=== PATIENT | female | born 1970 | race Caucasian/White ===

== ENCOUNTER 2016-10-08 19:45 | Inpatient (IN) | payer OTHER ==
--- NOTE | 2016-10-08 20:40 | EDPHY ---
H & P Stated Complaint: Abscess right side of chin Time Seen by Provider: 10/08/16 20:16 HPI/ROS: CHIEF COMPLAINT: right-sided facial swelling HISTORY OF PRESENT ILLNESS: 46-year-old female presents emergency department complaining of worsening right-sided facial swelling that started 10 days ago. Patient was seen by her primary care doctor 4 days ago and started on Augmentin for a presumed salivary gland stone. She was told to suck on sour candies intake ibuprofen around the clock. Patient reports she has been doing this, the swelling is not improving and is worsening. She reports she is unable to open her mouth more than a little bit. She denies difficulty swallowing, no sore throat, no fevers, no neck pain. Patient states last month she had a toothache that lasted for a couple weeks on the lower right side, this resolved on its own after a few days. REVIEW OF SYSTEMS: A comprehensive 10 point review of systems is otherwise negative aside from elements mentioned in the history of present illness. Source: Patient Exam Limitations: No limitations - Personal History LMP (Females 10-55): 8-14 Days Ago Current Tetanus/Diphtheria Vaccine: Yes Current Tetanus Diphtheria and Acellular Pertussis (TDAP): Yes - Medical/Surgical History Hx Asthma: No Hx Chronic Respiratory Disease: No Hx Diabetes: No Hx Cardiac Disease: No Hx Renal Disease: No Hx Cirrhosis: No Hx Alcoholism: No Hx HIV/AIDS: No Hx Splenectomy or Spleen Trauma: No Other PMH: - Social History Smoking Status: Never smoked - Physical Exam Exam: Physical Exam Gen: Alert and Oriented, NAD HEENT: PERRL, moist mucous membranes, trismus, unable to open mouth more than 1.5 cm, right-sided submandibular swelling, firmness and tenderness to palpation , no parotid gland swelling or firmness NECK: no meningismus CV: regular rate and regular rhythm PULM: CTAB, no wheezes ABDOMEN: soft, non tender to palpation, BS present BACK: No CVA tenderness NEURO: Neurologically grossly intact EXTREMITIES: normal appearing SKIN: no rash or break in skin on exposed skin PSYCH: answers questions appropriately. Constitutional: Initial Vital Signs Temperature (C) 37.0 C 10/08/16 19:49 Heart Rate 88 10/08/16 19:49 Respiratory Rate 16 10/08/16 19:49 Blood Pressure 178/105 H 10/08/16 19:49 O2 Sat (%) 98 10/08/16 19:49 O2 Delivery Mode Room Air Allergies/Adverse Reactions: Sulfa (Sulfonamide Antibiotics) Allergy (Verified 10/08/16 19:49) Home Medications: Medication Instructions Recorded NK [No Known Home Meds] 10/08/16 Medical Decision Making - Diagnostics Imaging: CT maxillofacial with IV contrast report called by Scot Bartholomew shows a phlegmon and possible abscess deep to the mandible, break in cortex of the medial side of mandible. ED Course/Re-evaluation: IV established, CBC and i-STAT and test obtained. CT face and soft tissue with and without contrast has been ordered. I have consulted Dr. Rendon with maxillofacial surgery who is requesting this. Patient has no evidence of Scooter's angina. She is given 0.5 mg of Dilaudid IV for pain. 1015pm-patient back from CT, awaiting results. CBC shows an elevated white blood cell count at 13,000 with a left shift, chemistry panel shows potassium of 3.0. Patient has a phlegmon that is deep to the mandible, possible apical abscess with a break in the cortex of the medial side of the mandible. I have consulted with Dr. Rendon who would like the patient admitted to the hospitalist. She would like 3 g of Unasyn IV and will see the patient in the morning for a dental extraction. Patient has been admitted to the hospitalist. - Data Points Laboratory Results: Laboratory Results 10/08/16 21:01 10/08/16 10/08/16 21:02 21:01 WBC 13.05 H 10^3/uL (3.80-9.50) RBC 4.15 L 10^6/uL (4.18-5.33) Hgb 12.8 g/dL (12.6-16.3) POC Hgb 12.9 gm/dL (12.3-15.9) Hct 37.6 L % (38.0-47.0) POC Hct 38 % (35.5-47.5) MCV 90.6 fL (81.5-99.8) MCH 30.8 pg (27.9-34.1) MCHC 34.0 g/dL (32.4-36.7) RDW 11.8 % (11.5-15.2) Plt Count 347 10^3/uL (150-400) MPV 9.3 fL (8.7-11.7) Neut % (Auto) 78.4 H % (39.3-74.2) Lymph % (Auto) 13.9 L % (15.0-45.0) [place] % (Auto) 5.7 % (4.5-13.0) Eos % (Auto) 1.1 % (0.6-7.6) Baso % (Auto) 0.4 % (0.3-1.7) Nucleat RBC Rel Count 0.0 % (0.0-0.2) Absolute Neuts (auto) 10.21 H 10^3/uL (1.70-6.50) Absolute Lymphs (auto) 1.82 10^3/uL (1.00-3.00) Absolute Monos (auto) 0.75 10^3/uL (0.30-0.80) Absolute Eos (auto) 0.15 10^3/uL (0.03-0.40) Absolute Basos (auto) 0.05 10^3/uL (0.02-0.10) Absolute Nucleated RBC 0.00 10^3/uL (0-0.01) Immature Gran % 0.5 % (0.0-1.1) Immature Gran # 0.07 10^3/uL (0.00-0.10) POC Sodium 140 mEq/L (134-144) POC Potassium 3.0 L mEq/L (3.3-5.0) POC Chloride 101 mEq/L (96-108) POC BUN 8 mg/dL (7-23) POC Creatinine 0.6 mg/dL (0.6-1.2) POC Glucose 96 mg/dL (70-100) Beta HCG, Qual NEGATIVE Medications Given: Discontinued Medications Hydromorphone HCl (Dilaudid) 0.5 mg IVP EDNOW ONE Stop: 10/08/16 22:34 Last Admin: 10/08/16 22:39 Dose: 0.5 mg Sodium Chloride (Ns) 500 mls @ 0 mls/hr IV ONCE ONE PRN Reason: As Directed Stop: 10/08/16 22:34 Last Admin: 10/08/16 22:39 Dose: 500 mls Ondansetron HCl (Zofran) 4 mg IVP EDNOW ONE Stop: 10/08/16 22:34 Last Admin: 10/08/16 22:39 Dose: 4 mg Point of Care Test Results: 10/08/16 21:02 POC Sodium 140 POC Potassium 3.0 L POC Chloride 101 POC BUN 8 POC Creatinine 0.6 POC Glucose 96 Departure - Departure Disposition: [facility] Inpatient Acute Clinical Impression: Dental abscess Condition: Good
[2016-10-08 21:14] LABS: % IMMATURE GRANULYOCYTES 0.5 % (0.0-1.1); ABSOLUTE IMMATURE GRANULOCYTES 0.07 10^3/uL (0.00-0.10); ADD DIFF? NO; ADD MORPH? NO; ADD SCAN? NO; ATYPICAL LYMPHOCYTE FLAG 0 (0-99); FRAGMENT RBC FLAG 0 (0-99); HEMATOCRIT 37.6 % (38.0-47.0); HEMOGLOBIN 12.8 g/dL (12.6-16.3); LEFT SHIFT FLG 0 (0-99); LIPEMIA HEMOLYSIS FLAG 90 (0-99); MEAN CELL HEMOGLOBIN 30.8 pg (27.9-34.1); MEAN CELL VOLUME 90.6 fL (81.5-99.8); MEAN PLATELET VOLUME 9.3 fL (8.7-11.7); PLATELET CLUMPS FLAG 0 (0-99); PLATELET COUNT 347 10^3/uL (150-400); RED BLOOD CELL COUNT 4.15 10^6/uL (4.18-5.33); RED CELL DISTRIBUTION WIDTH 11.8 % (11.5-15.2)
[2016-10-08] MEDS ORDERED: IOPAMIDOL (ISOVUE-300) 100 ML BTL IV ONE (22:09)
[2016-10-08] MEDS ORDERED: NS 500 ML IV ONE (22:33)
[2016-10-08] MEDS ORDERED: ONDANSETRON 4 MG/2 ML VIAL ONE (22:33)
[2016-10-08] MEDS ORDERED: HYDROmorphONE/DILAUDID 1 MG/ML SYR IVP ONE (22:33)
[2016-10-08] MEDS ORDERED: ONDANSETRON 4 MG/2 ML VIAL IVP ONE (22:33)
[2016-10-08] MEDS ORDERED: HYDROmorphONE/DILAUDID 1 MG/ML SYR ONE (22:33)
[2016-10-08] MEDS ORDERED: ONDANSETRON 4 MG/2 ML VIAL IVP PRN (23:03)
[2016-10-08] MEDS ORDERED: HYDROmorphONE/DILAUDID 1 MG/ML SYR IVP PRN (23:03)
[2016-10-08] MEDS ORDERED: NS 1,000 ML IV SCH (23:15)
--- NOTE | 2016-10-08 23:20 | PDGENHP ---
History and Physical - Chief Complaint dental pain - History of Present Illness Patient is a 46/F with no known medical history who presents to the ED with complaint of R jaw pain. Patient states symptoms started on 09/30 with slight swelling and discomfort in her lower/lateral R jaw. These symptoms progressed, the pain worsened, so she went to her PMD's office on 10/04. She was told it could be a salivary gland stone or infection, so she was started on Augmentin 2g BID and instructed to go to the ED if either the pain or swelling worsened. Patient has been compliant with the Augmentin since 10/04, but her jaw symptoms continued to worsen. Today, the pain had intensified severely, has difficulty opening her mouth due to pain, symptoms not responsive to Ibuprofen, so she came to the ED for further evaluation. She denies any associated fever, chills, headache, hearing changes, cough, shortness of breath, n/v. On arrival to the ED, patient was afebrile, but hypertensive and in significant pain. Labs revealed leukocytosis. CT neck was obtained and revealed possible submandibular abscess. OMFS was consulted and recommended admission for IV antibiotics and surgical debridement, to be performed in the AM. She was initiated on Unasyn and admitted to the hospitalist service for further management. 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 Review of Systems ROS: 10pt was reviewed & negative except for what was stated in HPI & below Physical Exam Temp Pulse Resp BP Pulse Ox 37.0 C 84 16 154/101 H 95 10/08/16 19:56 10/08/16 22:39 10/08/16 22:39 10/08/16 22:39 10/08/16 22:39 Constitutional: no apparent distress, appears nourished, not in pain Eyes: PERRL, anicteric sclera, EOMI Ears, Nose, Mouth, Throat: other (firm, tender soft tissue swelling of R submandibular area with associated cervical LAD; no obvious sign of skin breakdown) Cardiovascular: regular rate and rhythym, no murmur, rub, or gallop, pulses symmetric bilaterally, No JVD, No edema Peripheral Pulses: 2+: dorsalis-pedis (R), dorsalis-pedis (L) Respiratory: no respiratory distress, no rales or rhonchi, clear to auscultation Gastrointestinal: normoactive bowel sounds, soft, non-tender abdomen, no palpable masses, No guarding, No rebound Genitourinary: no bladder fullness, no bladder tenderness Skin: warm, normal color Musculoskeletal: full muscle strength, no muscle tenderness, normal joint ROM, no joint effusions Neurologic: AAOx3, sensation intact bilaterally, CN II-XII Intact, No weakness, No numbness Psychiatric: interacting appropriately, not anxious, not encephalopathic, thought process linear Lab Data & Imaging Review 10/08/16 21:01 WBC 13.05 10^3/uL (3.80-9.50) H 10/08/16 21: RBC 4.15 10^6/uL (4.18-5.33) L 10/08/16 21:01 Hgb 12.8 g/dL (12.6-16.3) 10/08/16 21:01 POC Hgb 12.9 gm/dL (12.3-15.9) 10/08/16 21:02 Hct 37.6 % (38.0-47.0) L 10/08/16 21:01 POC Hct 38 % (35.5-47.5) 10/08/16 21:02 MCV 90.6 fL (81.5-99.8) 10/08/16 21: MCH 30.8 pg (27.9-34.1) 10/08/16 21: MCHC 34.0 g/dL (32.4-36.7) 10/08/16 21:01 RDW 11.8 % (11.5-15.2) 10/08/16 21: Plt Count 347 10^3/uL (150-400) 10/08/16 21:01 MPV 9.3 fL (8.7-11.7) 10/08/16 21:01 Neut % (Auto) 78.4 % (39.3-74.2) H 10/08/16 21:01 Lymph % (Auto) 13.9 % (15.0-45.0) L 10/08/16 21:01 [place] % (Auto) 5.7 % (4.5-13.0) 10/08/16 21:01 Eos % (Auto) 1.1 % (0.6-7.6) 10/08/16 21:01 Baso % (Auto) 0.4 % (0.3-1.7) 10/08/16 21:01 Nucleat RBC Rel Count 0.0 % (0.0-0.2) 10/08/16 21:01 Absolute Neuts (auto) 10.21 10^3/uL (1.70-6.50) H 10/08/16 21:01 Absolute Lymphs (auto) 1.82 10^3/uL (1.00-3.00) 10/08/16 21:01 Absolute Monos (auto) 0.75 10^3/uL (0.30-0.80) 10/08/16 21:01 Absolute Eos (auto) 0.15 10^3/uL (0.03-0.40) 10/08/16 21:01 Absolute Basos (auto) 0.05 10^3/uL (0.02-0.10) 10/08/16 21:01 Absolute Nucleated RBC 0.00 10^3/uL (0-0.01) 10/08/16 21:01 Immature Gran % 0.5 % (0.0-1.1) 10/08/16 21:01 Immature Gran # 0.07 10^3/uL (0.00-0.10) 10/08/16 21:01 POC Sodium 140 mEq/L (134-144) 10/08/16 21:02 POC Potassium 3.0 mEq/L (3.3-5.0) L 10/08/16 21:02 POC Chloride 101 mEq/L (96-108) 10/08/16 21:02 POC BUN 8 mg/dL (7-23) 10/08/16 21:02 POC Creatinine 0.6 mg/dL (0.6-1.2) 10/08/16 21:02 POC Glucose 96 mg/dL (70-100) 10/08/16 21:02 Beta HCG, Qual NEGATIVE 10/08/16 21:01 Visualized and Interpreted imaging results: Yes Interpretation: CT neck: R submandibular abscess Assessment & Plan Assessment: Patient is a 46/F with no significant PMH who presents to the ED with complaint of R jaw pain, swelling, which has continued to worsen despite outpatient antibiotic treatment. CT reveals submandibular infection, with likely abscess, which will require surgical debridement. Plan: # R submandibular infection Leukocytosis, but patient afebrile, hemodynamically stable. Will cont Unasyn, f/ u OMFS post-op recs. Pain control with tylenol/oxycodone/dilaudid prn. Currently maintaining airway, respiratory status stable, no indication for steroids at this time, but will cont to monitor. # elevated BP Likely related to pain and acute illness. Will monitor for now and control symptoms. # dispo: admit under observation status pending results of surgical debridement tomorrow. # full code
--- NOTE | 2016-10-08 23:34 | PDCONSULT ---
Pad Cutter Note: ORAL & MAXILLOFACIAL SURGERY CONSULTATION HPI: The patient is a 46 year old female who reports right lower jaw and neck swelling that began 2/2. Six days later she presented to a primary care physician who prescribed her augmentin for a right salivary gland inflammation. She has been taking the prescribed dose as recommended with no improvement in her symptoms. She came to the ED today with worsening pain 6/10 that is now unresponsive to ibuprofen, decreased mouth opening, pain in her throat, and vocal changes. She denies any history of salivary gland inflammation or obstruction, but does report that she had a toothache with the last tooth on the bottom right 1.5 months ago. She did not seek treatment because the symptoms gradually subsided over a period of 3 weeks. PAST MEDICAL HISTORY: seasonal allergies MEDICATIONS: benadryl prn, augmentin, ibuprofen prn. ALLERGIES: sulfa medications SURGICAL HISTORY: 3 c-sections (1990, 1997, 2001), abdominoplasty (1994). does endorse PONV. SOCIAL HISTORY: social ETOH (last drink one month prior). denies tobacco or illicit drug use. Lives in [place] with her two daughters. FAMILY HISTORY: denies. ROS: She states that her blood pressure has been elevated this last week, but otherwise only endorses symptoms reported in the HPI. PHYSICAL EXAM: BMI 27. Blood pressure 178/105, heart rate 88, respiratory rate 16, O2 saturation 98% on room air, temperature 37.0. 5 X 6 cm induration and edema of the right submandibular region with obliteration of the right mandibular border, tenderness to palpation with mild erythema and warmth, CN II- XII grossly intact except R V3 hypoesthesia involving the chin and lip vermilion , trachea is midline, NENO 10 mm with discomfort, dentition with root tips of #4 , 6, 20, missing #19, FOM with mild edema but without elevation, able to protrude tongue, unable to visualize oropharynx or uvula, no tenderness to right mandibular vestibule or right mandibular dentition, no percussion sensitivity, no mobility. LABS: leukocytosis 13 IMAGING: appears odontogenic, with source likely #31 with associated cortical perforation in proximal mandibular lingual cortex ASSESSMENT/PLAN: right submandibular odontogenic infection associated with severe trismus. will require I&D, cultures, placement of intraoral/extraoral drains, extraction #31, possible open tracheostomy under awake nasal intubation tomorrow morning. Will consent in AM, possible that pt may need to remain intubated if oropharyngeal airway edema present after exam under GA. -initiate unasyn 3g q6h, would like pt to receive several doses prior to surgical intervention -periogard mouthrinse bid -ok for full liquids tonight, NPO at MN with MIVF -analgesics prn, roxicodone/tylenol/ibuprofen prn, morphine for breakthrough only -OMFS will follow
[2016-10-08] MEDS ORDERED: PROTOCOL MAGNESIUM 1 DOSE IV PRN (23:45)
[2016-10-08] MEDS ORDERED: PROTOCOL POTASSIUM 1 DOSE MISC PRN (23:45)
[2016-10-08] MEDS: ONDANSETRON DISINTEGRATING 4 MG TAB PO PRN (23:51)
[2016-10-08] MEDS: oxyCODONE IR 5 MG TAB PO PRN (23:53)
[2016-10-09] MEDS: LORazepam 1 MG TAB PO PRN ×2 (01:45→22:20)
[2016-10-09] MEDS ORDERED: POTASSIUM CL 10 MEQ TAB PO ONE ×4 (01:45→23:47)
[2016-10-09] MEDS: oxyCODONE IR 5 MG TAB PO PRN ×2 (02:00→14:44)
[2016-10-09] MEDS: POTASSIUM Cl (KCl) 100 ML IV SCH ×4 (02:16→06:22)
--- NOTE | 2016-10-09 02:29 | CPEKG ---
Heart Rate: 76 RR Interval: 789 P-R Interval: 180 QRSD Interval: 90 QT Interval: 388 QTC Interval: 437 P [place]: 58 QRS [place]: 88 T Wave [place]: -8 EKG Severity - BORDERLINE ECG - EKG Impression: SINUS RHYTHM EKG Impression: BORDERLINE T ABNORMALITIES, INFERIOR LEADS Electronically Signed By: Darien Escobar 09-Oct-2016 10:36:59
[2016-10-09] MEDS ORDERED: HYDROmorphONE/DILAUDID 1 MG/ML SYR IVP ONE (02:50)
[2016-10-09] MEDS: DEXAMETHASONE 4 MG/ML VIAL IVP SCH ×4 (05:18→23:27)
[2016-10-09] MEDS: KETOROLAC 30 MG/1 ML SDV IVP PRN ×3 (05:29→23:28)
[2016-10-09 05:58] LABS: % IMMATURE GRANULYOCYTES 0.6 % (0.0-1.1); ABSOLUTE IMMATURE GRANULOCYTES 0.07 10^3/uL (0.00-0.10); ADD DIFF? NO; ADD MORPH? NO; ADD SCAN? NO; ATYPICAL LYMPHOCYTE FLAG 0 (0-99); FRAGMENT RBC FLAG 0 (0-99); HEMATOCRIT 34.3 % (38.0-47.0); HEMOGLOBIN 11.7 g/dL (12.6-16.3); LEFT SHIFT FLG 10 (0-99); LIPEMIA HEMOLYSIS FLAG 90 (0-99); MEAN CELL HEMOGLOBIN 30.7 pg (27.9-34.1); MEAN CELL HEMOGLOBIN CONCENTR. 34.1 g/dL (32.4-36.7); MEAN PLATELET VOLUME 9.3 fL (8.7-11.7); PLATELET CLUMPS FLAG 20 (0-99); PLATELET COUNT 312 10^3/uL (150-400); RED BLOOD CELL COUNT 3.81 10^6/uL (4.18-5.33); RED CELL DISTRIBUTION WIDTH 11.9 % (11.5-15.2)
[2016-10-09] MEDS ORDERED: AMPICILLIN/SULBACTAM 3 GM in NS 100 ML IV SCH ×2 (06:00)
[2016-10-09 06:03] LABS: INR 1.06 (0.83-1.16); PROTIME(PATIENT) 13.7 SEC (12.0-15.0)
[2016-10-09 06:04] LABS: APTT 35.9 SEC (23.0-38.0)
[2016-10-09 06:40] LABS: ANION GAP 10 mEq/L (8-16); CALCIUM 8.3 mg/dL (8.5-10.4); CARBON DIOXIDE 23 mEq/l (22-31); CHLORIDE 106 mEq/L (97-110); CREATININE 0.4 mg/dL (0.6-1.0); GLOMERULAR FILTRATION RATE > 60; GLUCOSE 101 mg/dL (70-100); MAGNESIUM 1.7 mg/dL (1.6-2.3); POTASSIUM 3.8 mEq/L (3.5-5.2); SODIUM 139 mEq/L (134-144)
--- NOTE | 2016-10-09 08:33 | HOSPPROG ---
Hospitalist Progress Note Assessment/Plan: Patient is a 46/F with no known medical history who presents to the ED with complaint of R jaw pain. Symptoms started on 09/30 with slight swelling and discomfort in her lower/lateral R jaw. These symptoms progressed. She was her PCP and was started on Augmentin out of concern of a salivary gland stone or infection. Today is my first encounter w the patient/ chart reviewed. # R odontogenic submandibular infection w severe trismus * unasyn * to go to OR for I & D * CT of the neck shows possible mandibular abscess # Leukocytosis * due to the above # elevated BP * due to pain # dispo: she will require another midnight stay for IV abx Subjective: Amy is sleepy/ says pain is ongoing to right jaw area. Objective: Vital Signs Temp Pulse Resp BP Pulse Ox 36.7 C 71 10 L 156/87 H 99 10/09/16 03:25 10/09/16 03:25 10/09/16 03:25 10/09/16 03:25 10/09/16 03:25 Laboratory Results 10/09/16 05:42 10/09/16 05:42 10/08/16 10/09/16 10/10/16 05:59 05:59 05:59 Intake Total 2233 Output Total 300 Balance 1933 PT 13.7 SEC (12.0-15.0) 10/09/16 05:42 INR 1.06 (0.83-1.16) 10/09/16 05:42 - Physical Exam Constitutional: uncomfortable, No not in pain Eyes: PERRL Ears, Nose, Mouth, Throat: hearing normal Cardiovascular: regular rate and rhythym Respiratory: no respiratory distress Gastrointestinal: normoactive bowel sounds Skin: other (large [place] area of swelling in right jaw area) Musculoskeletal: no muscle tenderness Neurologic: AAOx3 Psychiatric: interacting appropriately ICD10 Worksheet Patient Problems: Problems Problem Status Diagnosed Dental abscess Acute
[2016-10-09] MEDS ORDERED: LIDO/EPI 2%** Not for Epidural 20 ML MDV ONE (08:57)
--- NOTE | 2016-10-09 08:57 | CT ---
CT of the Face With Contrast History: Right-sided mandibular swelling and facial swelling. Technique: Volumetric axial CT images of the face are obtained after intravenous administration of 80 mL Isovue 300. Reconstructed images are obtained in the sagittal and coronal planes. Dose reduction techniques are utilized. Findings: There is a focal apical abscess surrounding a posterior right mandibular molar. This findin g is best visualized on axial bone images 97 and 98 of series 4. There is associated dehiscence of th e medial cortex of the mandible, and there is adjacent inflammatory changes and possible abscess vers us inflammatory phlegmon medial to the mandibular body, measuring 2.4 x 1.1 cm in size and dissecting posteriorly toward the angle. Marked adjacent inflammatory changes within the submandibular fat, inc luding reactive lymphadenopathy within the submandibular space. Impression: Periapical abscess involving the posterior right mandibular molar with cortical dehiscenc e medially and inflammatory phlegmon versus abscess medial to the mandible with secondary marked soft tissue inflammatory changes in the submandibular space and submandibular reactive lymphadenopathy. Results called to Teena López PA-C at 10:45 p.mLuna
[2016-10-09] MEDS ORDERED: BACITRACIN 50,000 UNITS/10 ML SYR IRR ONE (08:58)
[2016-10-09] MEDS ORDERED: POLYMYXIN B SULFATE 500,000 UNIT/10 ML SYR IRR ONE (08:58)
[2016-10-09] MEDS ORDERED: methylPREDNISolone SOD SUCC 125 MG/2 ML VIAL ONE (08:59)
[2016-10-09] MEDS ORDERED: BUPIVACAINE/EPI 0.5% 30 ML SDV ONE (09:02)
[2016-10-09] MEDS ORDERED: fentaNYL 100 MCG/2 ML INJ ONE ×2 (09:59→11:11)
[2016-10-09] MEDS ORDERED: PROPOFOL/EMULSION 500 MG/50 ML BOTTLE IV ONE (10:00)
[2016-10-09] MEDS ORDERED: MIDAZOLAM 2 MG/2 ML VIAL ONE (10:01)
[2016-10-09] MEDS ORDERED: DEXAMETHASONE 4 MG/ML VIAL ONE ×2 (10:25)
[2016-10-09] MEDS ORDERED: SUGAMMADEX SODIUM 200 MG/2 ML VIAL IVP ONE (10:53)
--- NOTE | 2016-10-09 11:47 | POSTOPPROG ---
Post Op Note Date of Operation: 10/09/16 Surgeon: Vero Bansal Strapper: n/a Anesthesiologist: Klaus Vicente Anesthesia: GET(General Endotracheal), Other (Specify) (nasoendotracheal) Pre-op Diagnosis: right submandibular space abscess Post-op Diagnosis: same Indication: trismus Procedure: extraction #31, I&D of right submandibular space abscess, drain placement Findings: purulent drainage Inf/Abcess present in the surg proc area at time of surgery?: Yes Depth: Deep Incisional (Fascial) EBL: Minimal Drains: Paul (one paul exiting right cervical region)
[2016-10-09] MEDS ORDERED: POTASSIUM CL 20 MEQ/15 ML UDCUP PO ONE (13:00)
--- NOTE | 2016-10-09 13:36 | GOP ---
[f rep st] ORAL & MAXILLOFACIAL SURGERY OPERATIVE REPORT DATE OF OPERATION: 10/09/2016 SURGEON: Vero Bansal DDS, MD ANESTHESIA: GA. ANESTHESIOLOGIST: Klaus Vicente MD. PREOPERATIVE DIAGNOSIS: Right submandibular space abscess, fractured confucianism #31. POSTOPERATIVE DIAGNOSIS: Right submandibular space abscess, fractured confucianism #31. PROCEDURE PERFORMED: Incision and drainage of right submandibular space abscess with extraction of tooth #31, placement of 1 extraoral drain. FINDINGS: purulent drainage SPECIMENS: None. CULTURE: aerobic and anaerobic x 2 DRAIN: paul x 1, right neck ESTIMATED BLOOD LOSS: 10 cc. INDICATIONS: The patient is a 46-year-old female who presented to the ED last night with complaints of worsening pain, right facial swelling, and difficulty opening her mouth that initially began 2/2 and progressed despite antibiotics. On evaluation, it was found that she had edema of the right submandibular space region with a NENO of 10 mm. Imaging demonstrated a fluid collection of the right submandibular space and a cortical break associated with tooth #31. Risks , benefits, and complications were explained to the patient, and she consented to the procedure. She was admitted overnight for observation. DESCRIPTION OF PROCEDURE: The patient was correctly identified in the preoperative holding area and taken to OR 4, and transferred to the OR bed in a supine position. She was prepped for an awake nasoendotracheal intubation, and it was performed without complication. She was then prepped and draped in the usual sterile fashion and a time-out was performed, where all members of the team were in agreement of the procedure. The right inferior border of the mandible and a 3 cm incision in a pre-existing neck crease > 2 cm below the border was marked. 2 cc of 0.5% Marcaine with 1:200,000 epinephrine was locally infiltrated in the subcutaneous tissues. Under negative pressure a syringe was guided from the marked incision and 2 cc of purulent drainage was obtained from the right submandibular space and sent for culture. A bite block was placed and 5 cc of 0.5% Marcaine with 1:200,000 epinephrine was given as a right inferior alveolar and lingual nerve block and a right buccal nerve infiltration. Tooth #31 was elevated and delivered without complication. Blunt dissection through the cervical incision was performed to the extraction site on the lingual cortex, where 7 cc of purulent drainage was expressed through the extraction site. A quarter-inch [place] was placed through the cervical region and connected to the oral cavity. 200 cc of normal saline irrigation was performed, with communication from the oral cavity to the cervical incision. The [place] was secured to the skin with a 2-0 Prolene suture. The lateral communications media professor space was explored and no drainage was obtained. A gauze pressure dressing with umbilical tape was placed intraorally, and gauze with an Andrea wrap was placed for the cervical incision. The patient was awakened and extubated without complication and transferred to PACU in the care of her surgery team. /[id number]/MODL MTDD
[2016-10-09] MEDS: AMPICILLIN/SULBACTAM 3 GM in NS 100 ML IV SCH ×3 (14:39→20:35)
[2016-10-09] MEDS ORDERED: MAGNESIUM SULF 1 GM/DEXTROSE 100 ML IV ONE (15:50)
[2016-10-09] MEDS ORDERED: NS BOLUS 500 ML (Wide open) IV ONE (20:00)
[2016-10-09 21:18] LABS: POTASSIUM 3.6 mEq/L (3.5-5.2)
[2016-10-09] MEDS: ONDANSETRON DISINTEGRATING 4 MG TAB PO PRN (22:19)
[2016-10-09] MEDS: ACETAMINOPHEN 325 MG TAB PO PRN (22:21)
[2016-10-09] MEDS ORDERED: POTASSIUM Cl (KCl) 100 ML IV SCH (23:30)
[2016-10-10] MEDS: AMPICILLIN/SULBACTAM 3 GM in NS 100 ML IV SCH ×4 (01:06→17:22)
[2016-10-10] MEDS: KETOROLAC 30 MG/1 ML SDV IVP PRN ×3 (05:17→18:30)
[2016-10-10] MEDS: DEXAMETHASONE 4 MG/ML VIAL IVP SCH (05:17)
[2016-10-10 05:57] LABS: % IMMATURE GRANULYOCYTES 0.8 % (0.0-1.1); ABSOLUTE IMMATURE GRANULOCYTES 0.14 10^3/uL (0.00-0.10); ADD DIFF? NO; ADD MORPH? NO; ADD SCAN? NO; ATYPICAL LYMPHOCYTE FLAG 0 (0-99); FRAGMENT RBC FLAG 0 (0-99); HEMATOCRIT 33.9 % (38.0-47.0); HEMOGLOBIN 11.7 g/dL (12.6-16.3); LEFT SHIFT FLG 10 (0-99); LIPEMIA HEMOLYSIS FLAG 90 (0-99); MEAN CELL HEMOGLOBIN 30.7 pg (27.9-34.1); MEAN CELL HEMOGLOBIN CONCENTR. 34.5 g/dL (32.4-36.7); MEAN PLATELET VOLUME 9.7 fL (8.7-11.7); PLATELET CLUMPS FLAG 10 (0-99); PLATELET COUNT 388 10^3/uL (150-400); RED BLOOD CELL COUNT 3.81 10^6/uL (4.18-5.33); RED CELL DISTRIBUTION WIDTH 11.5 % (11.5-15.2)
[2016-10-10 06:18] LABS: MAGNESIUM 2.1 mg/dL (1.6-2.3); POTASSIUM 3.9 mEq/L (3.5-5.2)
[2016-10-10] MEDS ORDERED: POTASSIUM CL 10 MEQ TAB PO ONE ×2 (08:55→20:28)
--- NOTE | 2016-10-10 09:08 | SOAPPROG ---
SOAP Progress Note Assessment/Plan: Assessment: 46 y F now POD 1 of extraction #31, I&D of right submandibular space infection, paul x 1, currently stable. Dressing changed this am, moderate purulent drainage, will continue to monitor for output prior to drain removal. discussed c pt this am, she should ambulate, shower, eat, and stay hydrated. Plan: -continue unasyn, pending final cultures. likely can transition to oral abx tomorrow -transition to oral analgesics to plan for d/c, likely monday -diet, can advance as tolerated but to stay on soft today for comfort -peridex bid -ok to d/c decadron -CBC tomorrow -will follow 10/10/16 09:03 Subjective: no overnight events Objective: Vital Signs Temp Pulse Resp BP Pulse Ox 36.9 C 88 18 130/84 H 95 10/10/16 08:14 10/10/16 08:14 10/10/16 08:14 10/10/16 08:14 10/10/16 08:14 Microbiology 10/09/16 10:35 Gram Stain - Final Mouth - Eswab 10/09/16 10:35 Gram Stain - Final Mouth - Eswab Laboratory Results 10/10/16 05:25 10/10/16 05:25 10/09/16 10/10/16 10/11/16 05:59 05:59 05:59 Intake Total 2233 2040 Output Total 300 1260 Balance 1933 780 PT 13.7 SEC (12.0-15.0) 10/09/16 05:42 INR 1.06 (0.83-1.16) 10/09/16 05:42 dressing removed with improvement in right submandibular edema, induration present as expected, drain secured with suture CN II-XII grossly intact except for R V3 hypoesthesia limited to mentum NENO 15 mm, FOM soft, extraction site hemostatic, drain intact intraorally ICD10 Worksheet Patient Problems: Problems Problem Status Diagnosed Dental abscess Acute
[2016-10-10] MEDS: CHLORHEXIDINE GLUCONATE 15 ML UDL PO SCH ×2 (09:14→20:41)
--- NOTE | 2016-10-10 10:19 | GCON ---
[f rep st] CONSULTATION INPATIENT INFECTIOUS DISEASE CONSULTATION REFERRING PHYSICIAN: Valeria Martínez NP REASON FOR CONSULTATION: Right-sided submandibular abscess with odontologic infection. HISTORY OF PRESENT ILLNESS: Patient is a 46-year-old female with no significant past medical history , who presented to the emergency room on 10/08/2016 complaining of swollen face on the right side, as well swelling in the right submandibular area. She notes that she had a toothache on the right side approximately a month ago, but it went away on its own. She started noticing facial swelling 10 day s prior to her presentation. She saw her primary care doctor 4 days prior to presentation who starte d her on 2000 mg of Augmentin b.i.d. The presumption at that point was that she may have had a saliv cherry gland obstructing stone. The patient had significant trismus. She denies any fevers, chills, or night sweats. She underwent surgery yesterday with Dr. Bansal. Findings included 7 cc of purulent drai nage through the right neck site. [place] drain was placed draining externally out the right side of the neck, as well as an internal Brian to the oral cavity. There was no drainage seen in the late ral health care liaison space. She has been managed on intravenous Unasyn. Currently, she is resting comfort ably in her hospital bed. She denies any new complaint. She states that the facial and neck swellin g has decreased significantly in the last 24 hours. Denies any fevers or chills. PAST MEDICAL HISTORY: Essentially negative. PAST SURGICAL HISTORY: As above. . ANTIBIOTICS: Unasyn. ALLERGIES: Patient is allergic to sulfa drugs. SOCIAL HISTORY: No significant tobacco, alcohol or drug use noted. FAMILY HISTORY: Reviewed and noncontributory. REVIEW OF SYSTEMS: Other than detailed above in the History of Present Illness, a comprehensive 10-s ystem review is negative. PHYSICAL EXAMINATION: VITAL SIGNS: Temperature maximum is 37.0, temperature current is 36.9, heart rate is 88, respiratory rate is 18, blood pressure is 130/84. GENERAL: The patient is a well-formed , well-nourished female, in no acute distress. She is not toxic in appearance. She is alert oriente d x3. She is in a pleasant demeanor. HEENT: Normocephalic. Atraumatic. No scleral icterus. The patient has a Brian drain visible in the right mandibular area intraorally. No significant purulen ce noted. No drainage from the nares. Eyes lids and conjunctivae within normal limits. Pupils are equal and round bilaterally. NECK: Supple. Full on the right versus left side. Brian drain emerg ing submandibularly on the right side. A small amount of seropurulent on the gauze pad. No fluctuan ce noted. LUNGS: Clear to auscultation bilaterally with good effort. HEART: Regular rate and rhyt hm. No murmur, rub, or gallop noted. SKIN: Warm and dry to the touch. No rash or lesion noted. M USCULOSKELETAL: No muscle tenderness noted. No joint enlargement, effusion or arthritis seen. NEUR O: Cranial nerves 2-12 seem to be intact. Peripheral sensation seems intact in all extremities. LABORATORY DATA: The patient's CBC dated 10/10/2016 shows a white blood cell count of 16.8, hemoglob in 11.7, hematocrit of 33.9, platelet count of 388, differential is left-shifted with 89% segmented n eutrophils. Serum chemistry on 10/09/2016 was within normal limits. Creatinine 0.4. MICROBIOLOGIC DATA: The patient had operative cultures dated to 10/09/2016, which show gram-positive cocci and gram-positive rods on Gram stain. Culture is pending. ASSESSMENT: Right-sided odontologic infection leading to submandibular swelling and abscess. Now st atus post incision and drainage. Unasyn is a reasonable cover of oral pete that most likely be the etiology of this. I am concerned due to the time frame of symptoms that mandibular bone involvement may be in the picture here. I will review the CT scan of her face with Radiology today and based upo n that discussion, we will determine whether oral antibiotics can be pursued or whether she will need a course of IV antibiotics to treat. PLAN: 1. Continue IV Unasyn for now. 2. Follow up with Radiology review. 3. We will follow her clinical course and culture data. /[id number]/MODL
--- NOTE | 2016-10-10 11:48 | HOSPPROG ---
Hospitalist Progress Note Assessment/Plan: Patient is a 46/F with no known medical history who presents to the ED with complaint of R jaw pain. Symptoms started on 09/30 with slight swelling and discomfort in her lower/lateral R jaw. These symptoms progressed. She was her PCP and was started on Augmentin out of concern of a salivary gland stone or infection. Reviewed her care with ID and oral surgeon today. # R odontogenic submandibular infection w severe trismus * unasyn * s/p I & D * CT of the neck shows possible mandibular abscess * paul drain in/ patient is feeling better # Leukocytosis * due to the above and was on decadron # elevated BP * due to pain # dispo: likely will need 1-2 more days in hospital for abx Subjective: Amy is feeling better overall/ less swelling/ pain is overall well managed. Objective: Vital Signs Temp Pulse Resp BP Pulse Ox 36.9 C 82 18 146/105 H 96 10/10/16 08:14 10/10/16 11:15 10/10/16 11:15 10/10/16 11:15 10/10/16 11:15 Laboratory Results 10/10/16 05:25 10/10/16 05:25 10/09/16 10/10/16 10/11/16 05:59 05:59 05:59 Intake Total 1140 Output Total 1250 Balance -110 PT 13.7 SEC (12.0-15.0) 10/09/16 05:42 INR 1.06 (0.83-1.16) 10/09/16 05:42 - Physical Exam Constitutional: appears nourished, not in pain Eyes: PERRL Ears, Nose, Mouth, Throat: hearing normal Cardiovascular: regular rate and rhythym Respiratory: no respiratory distress Gastrointestinal: normoactive bowel sounds Skin: warm, normal color, other (jaw/right side with swelling/ but less since yesterday) Musculoskeletal: full muscle strength, no muscle tenderness Neurologic: AAOx3 Psychiatric: interacting appropriately, not anxious ICD10 Worksheet Patient Problems: Problems Problem Status Diagnosed Dental abscess Acute
[2016-10-10 19:16] LABS: POTASSIUM 3.9 mEq/L (3.5-5.2)
[2016-10-10] MEDS: OXYCODONE/APAP 5/325 TAB PO PRN (20:40)
[2016-10-11] MEDS: KETOROLAC 30 MG/1 ML SDV IVP PRN ×3 (00:32→20:54)
[2016-10-11] MEDS: AMPICILLIN/SULBACTAM 3 GM in NS 100 ML IV SCH ×2 (00:32→09:01)
[2016-10-11] MEDS ORDERED: KETOROLAC 30 MG/1 ML SDV ONE (06:02)
[2016-10-11 06:23] LABS: MAGNESIUM 1.9 mg/dL (1.6-2.3); POTASSIUM 3.9 mEq/L (3.5-5.2)
[2016-10-11] MEDS ORDERED: POTASSIUM CL 10 MEQ TAB PO ONE ×2 (07:32→19:42)
--- NOTE | 2016-10-11 09:13 | PCMIDPN ---
Assessment/Plan: Assessment/Plan: 1. 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 i spoke to micro to do sensitivities. - CT's reviewed by Dr. Barroso with radiology yesterday--concerns for osteomyelitis of the mandible - Given that, will change atbx to invanz for easier OP regimen, plan for at least 6 weeks of atbx with OP f/u in office, -Will order for PIcc line today -Care coordinated with hospitalist team. - Still with purulent drainage from paul drain. -will work on interagency form. [employer]. Subjective: Aebrile. Feeling a little better today. Slight decrease in swelling. able to open up mouth a litte bit more. mild cough when taking deep breaths. Denies abd pain. Some loose stools yesterday x 2. taking in solids. Objective: Vital Signs Temp Pulse Resp BP Pulse Ox 36.7 C 69 16 126/84 H 94 10/11/16 08:00 10/11/16 08:00 10/11/16 08:00 10/11/16 08:00 10/11/16 08:00 Laboratory Results 10/10/16 05:25 10/11/16 05:12 10/10/16 10/11/16 10/12/16 05:59 05:59 05:59 Intake Total 1140 Output Total 1250 150 Balance -110 -150 - Physical Exam General Appearance: alert, no apparent distress EENT: other (induration at right neck. some swelling at lower jaw line. paul drain noted with bloody purulent drainage present on dressing. some tenderness to palpation. ) Respiratory: lungs clear Cardiac/Chest: regular rate, rhythm Extremities: No swelling Abdomen: normal bowel sounds, non-tender, soft, No distended Skin: No erythema ICD10 Worksheet Patient Problems: Problems Problem Status Onset Dental abscess Acute
[2016-10-11] MEDS ORDERED: ALTEPLASE 2 MG VIAL IVP PRN (09:24)
[2016-10-11] MEDS: OXYCODONE/APAP 5/325 TAB PO PRN ×2 (09:59→18:32)
[2016-10-11] MEDS: CHLORHEXIDINE GLUCONATE 15 ML UDL PO SCH ×2 (13:30→20:52)
[2016-10-11] MEDS: ERTAPENEM 1 GM in NS 100 ML IV SCH (14:14)
[2016-10-11 14:41] LABS: % IMMATURE GRANULYOCYTES 1.7 % (0.0-1.1); ABSOLUTE IMMATURE GRANULOCYTES 0.17 10^3/uL (0.00-0.10); ADD DIFF? NO; ATYPICAL LYMPHOCYTE FLAG 0 (0-99); PLATELET CLUMPS FLAG 0 (0-99)
--- NOTE | 2016-10-11 15:26 | SOAPPROG ---
SOAP Progress Note Assessment/Plan: Assessment: 46 y F now POD 2 of extraction #31, I&D of right submandibular space infection, paul x 1, currently stable. Drain remains patent, advanced today to decrease salivary flow into cervical wound, will continue to monitor output. Plan: -from OMFS standpoint given that pt is healthy, clinically improving, etiology of abscess has been removed, and clinical interpretation of imaging appears consistent with localized cortical plate discontinuity related to extension of a periapical abscess, would be ok if oral abx conversion occurs as long as pt has close outpatient follow-up with Dr. Bansal on a weekly basis. But very much appreciate ID recommendations and time spent with pt. -peridex bid -diet advance as tolerated -pt recommended to transition to oral analgesics today -pt told to shower, ok to remove dressing and allow cervical incision to be wet , air-dry before new dressing applied -will follow for drain management 10/11/16 15:30 Subjective: no overnight events, pt reports discomfort ranges from 2/10 to 5/10, numbness slowly resolving, has to change dressing with rinsing with chlorhexidine, otherwise tolerating PO intake and ambulating Objective: Vital Signs Temp Pulse Resp BP Pulse Ox 36.7 C 69 16 126/84 H 94 10/11/16 08:00 10/11/16 08:00 10/11/16 08:00 10/11/16 08:00 10/11/16 08:00 Laboratory Results 10/11/16 14:23 10/11/16 05:12 10/10/16 10/11/16 10/12/16 05:59 05:59 05:59 Intake Total 1140 Output Total 1250 150 Balance -110 -150 PT 13.7 SEC (12.0-15.0) 10/09/16 05:42 INR 1.06 (0.83-1.16) 10/09/16 05:42 right cervical edema improving, induration remains as expected, erythema decreasing, CN II-XII grossly intact except R V3 hypoesthesia now withdrawing from vermilion border, cervical incision with intact drain, no surrounding erythema, dressing present x ~13 hours with mild purulent drainage, NENO 15 mm to 20 with assistance, paul visible from lingual aspect of extraction socket , FOM soft and non-elevated ICD10 Worksheet Patient Problems: Problems Problem Status Onset Dental abscess Acute
--- NOTE | 2016-10-11 17:17 | HOSPPROG ---
Hospitalist Progress Note Assessment/Plan: Patient is a 46/F with no known medical history who presents to the ED with complaint of R jaw pain. Symptoms started on 09/30 with slight swelling and discomfort in her lower/lateral R jaw. These symptoms progressed. She was her PCP and was started on Augmentin out of concern of a salivary gland stone or infection. Reviewed her care with ID. # R odontogenic submandibular infection w severe trismus/ w osteo * unasyn dc today and changed to Ertapenem * s/p I & D * paul drain in/ patient is feeling better # Leukocytosis * due to the above and was on decadron # elevated BP * due to pain # dispo: Dr Peralta had ordered a PICC for daily abx, but this is on hold/ patient travels to [place] 2 x week and isn't sure this can be arranged. I explained the importance of IV abx but she is concerned about income, etc. CM is actively working with her about f/u care and treatment/ other issue is her insurance doesn't cover her coming to [facility] for IV infusion. DC plans are still pending. Subjective: Amy said jaw pain is well managed/ she is concerned about OP f/ u. Objective: Vital Signs Temp Pulse Resp BP Pulse Ox 36.6 C 69 18 142/85 H 95 10/11/16 15:39 10/11/16 15:39 10/11/16 15:39 10/11/16 16:11 10/11/16 15:39 Laboratory Results 10/11/16 14:23 10/11/16 05:12 10/10/16 10/11/16 10/12/16 05:59 05:59 05:59 Intake Total 1140 Output Total 1250 150 700 Balance -110 -150 -700 PT 13.7 SEC (12.0-15.0) 10/09/16 05:42 INR 1.06 (0.83-1.16) 10/09/16 05:42 - Physical Exam Constitutional: no apparent distress, appears nourished, not in pain Eyes: PERRL Ears, Nose, Mouth, Throat: hearing normal Cardiovascular: regular rate and rhythym Respiratory: no respiratory distress Skin: other (right jaw area with less swelling) Musculoskeletal: no muscle tenderness Neurologic: AAOx3 Psychiatric: interacting appropriately, anxious ICD10 Worksheet Patient Problems: Problems Problem Status Onset Dental abscess Acute
[2016-10-11 19:20] LABS: POTASSIUM 3.9 mEq/L (3.5-5.2)
[2016-10-11] MEDS: LORazepam 1 MG TAB PO PRN (21:25)
[2016-10-11 23:31] VITALS: RESP 16
[2016-10-12] MEDS ORDERED: MOXIFLOXACIN 400 MG TAB PO SCH
[2016-10-12 05:48] LABS: % IMMATURE GRANULYOCYTES 2.1 % (0.0-1.1); ABSOLUTE IMMATURE GRANULOCYTES 0.16 10^3/uL (0.00-0.10); ADD DIFF? NO; ADD MORPH? NO; ADD SCAN? NO; ATYPICAL LYMPHOCYTE FLAG 0 (0-99); FRAGMENT RBC FLAG 10 (0-99); HEMATOCRIT 32.9 % (38.0-47.0); HEMOGLOBIN 11.4 g/dL (12.6-16.3); LEFT SHIFT FLG 10 (0-99); LIPEMIA HEMOLYSIS FLAG 90 (0-99); MEAN CELL HEMOGLOBIN 30.7 pg (27.9-34.1); MEAN CELL HEMOGLOBIN CONCENTR. 34.7 g/dL (32.4-36.7); MEAN CELL VOLUME 88.7 fL (81.5-99.8); MEAN PLATELET VOLUME 9.4 fL (8.7-11.7); PLATELET CLUMPS FLAG 10 (0-99); PLATELET COUNT 401 10^3/uL (150-400); RED BLOOD CELL COUNT 3.71 10^6/uL (4.18-5.33); RED CELL DISTRIBUTION WIDTH 11.6 % (11.5-15.2)
[2016-10-12] MEDS: OXYCODONE/APAP 5/325 TAB PO PRN (06:07)
[2016-10-12 06:09] LABS: ALANINE AMINOTRANSFERASE 33 IU/L (9-52); ALKALINE PHOSPHATASE 47 IU/L (38-126); ANION GAP 6 mEq/L (8-16); ASPARTATE AMINOTRANSFERASE 19 IU/L (14-46); BILIRUBIN,TOTAL 0.3 mg/dL (0.1-1.4); CALCIUM 8.6 mg/dL (8.5-10.4); CARBON DIOXIDE 26 mEq/l (22-31); CHLORIDE 104 mEq/L (97-110); CREATININE 0.5 mg/dL (0.6-1.0); GLOMERULAR FILTRATION RATE > 60; GLUCOSE 81 mg/dL (70-100); MAGNESIUM 1.9 mg/dL (1.6-2.3); SODIUM 136 mEq/L (134-144); TOTAL PROTEIN 5.7 g/dL (6.3-8.2)
[2016-10-12 08:44] VITALS: BP 155/84; PULSE 65; TEMP 97.9; O2SAT 95
[2016-10-12] MEDS: KETOROLAC 30 MG/1 ML SDV IVP PRN (09:18)
[2016-10-12] MEDS ORDERED: IBUPROFEN 800 MG TAB PO PRN (09:27)
--- NOTE | 2016-10-12 09:32 | SOAPPROG ---
SOAP Progress Note Assessment/Plan: Assessment: 46 y F now POD 3 of extraction #31, I&D of right submandibular space infection, paul x 1, currently stable. Drain remains patent with purulent discharge, no advancement or removal today, will continue to monitor output. Will monitor pain, surgical dissection did involve medial pterygoid and masseter, which corresponds to pt's description of discomfort. Plan: -d/c'ed toradol and transition to PO motrin -jaw stretching exercises discussed with pt and to be initiated today after lunch -moist heat and massage to kwame-mandibular muscles -peridex bid -pt has Dr. Bansal's contact information: if discharged from [facility] she will f/u in office for drain management, pt knowledgeable of drain care. OMFS will continue to follow for drain management as long as she remains admitted. -appreciate PA and hospital medicine recommendations and management 10/12/16 09:36 Subjective: tolerating percocet, requests if she can have motrin because of timeframe it takes to receive toradol. otherwise discomfort ~2/10 to 6/10, mostly limited to jaw muscles, but reports no leakage from oral cavity to dressing with mouthrinses now Objective: Vital Signs Temp Pulse Resp BP Pulse Ox 36.6 C 65 16 155/84 H 95 10/12/16 08:00 10/12/16 08:00 10/12/16 08:00 10/12/16 08:00 10/12/16 08:00 Laboratory Results 10/12/16 05:23 10/12/16 05:23 10/11/16 10/12/16 10/13/16 05:59 05:59 05:59 Intake Total 1975 Output Total 150 3200 Balance -150 -1225 PT 13.7 SEC (12.0-15.0) 10/09/16 05:42 INR 1.06 (0.83-1.16) 10/09/16 05:42 cervical edema decreasing, induration decreasing, CN II-XII grossly intact except R V3 hypoesthesia, cervical incision with dressing intact, last change ~ 16 hours ago with approximately 2 cc's of purulent drainage on gauze, NENO unchanged (~ 20 mm with assistance), FOM soft, extraction site hemostatic ICD10 Worksheet Patient Problems: Problems Problem Status Onset Dental abscess Acute
[2016-10-12] MEDS: ERTAPENEM 1 GM in NS 100 ML IV SCH (09:35)
[2016-10-12] MEDS: CHLORHEXIDINE GLUCONATE 15 ML UDL PO SCH (09:35)
[2016-10-12] MEDS: ACETAMINOPHEN 325 MG TAB PO PRN ×2 (10:30→13:52)
--- NOTE | 2016-10-12 11:08 | PCMIDPN ---
Assessment/Plan: # right submandibular space abscess s/p extraction #31, I&D of right submandibular space abscess, drain placement with culture showing strep intermedius, question of early osteomyelitis on imaging. Because of concern for early OM will select oral antibiotic that has high oral absorption. Further will direct coverage at streptococcus + anaerobes. Primary treatment is debridement by the surgical services which was performed on 10/09/2016, as described above --today is day 3 of antibiotic therapy postprocedure will plan 11 more days of therapy with moxifloxacin --suspect surgical follow-up adequate but patient can contact our office if problems arise --reviewed side effects of moxifloxacin in detail including typical antibiotic side effects: Rash, diarrhea, fever as well as side effect specific to moxifloxacin including interaction with cations and tendinopathy Subjective: Less pain today. No rash or diarrhea Objective: Vital Signs Temp Pulse Resp BP Pulse Ox 36.6 C 65 16 155/84 H 95 10/12/16 08:00 10/12/16 08:00 10/12/16 08:00 10/12/16 08:00 10/12/16 08:00 Laboratory Results 10/12/16 05:23 10/12/16 05:23 10/11/16 10/12/16 10/13/16 05:59 05:59 05:59 Intake Total 1975 120 Output Total 150 3200 Balance -150 -1225 120 - Physical Exam General Appearance: alert, no apparent distress EENT: other (Obvious defect in posterior lower right molar, no erythema or purulence noted), No thrush Neck: other ([place] Drain in place right side of neck, gauze with some serosanguineous drainage) Skin: No rash Neuro/Psych: alert, normal mood/affect, oriented x 3 - Time Spent With Patient Time Spent with Patient: greater than 25 minutes Time Spent with Patient: Greater than 25 minutes spent on this patients care, greater than 50% of time spent counseling, educating, and coordinating care regarding the above mentioned plan. ICD10 Worksheet Patient Problems: Problems Problem Status Onset Dental abscess Acute
--- NOTE | 2016-10-12 16:49 | GDS ---
[f rep st] DISCHARGE SUMMARY DISCHARGE DIAGNOSES: 1. Right odontogenic submandibular infection. 2. Leukocytosis. 3. Elevated blood pressure. CONSULTATIONS: 1. Infectious Disease. 2. chronometer tester. STUDIES AND PROCEDURES DONE: Right submandibular space abscess incision and drainage with extractio n of tooth #31 and placement of drain. PHYSICAL EXAM: GENERAL: The patient is alert. VITAL SIGNS: Afebrile 36.7, pulse is 65, respirato ry rate 16, blood pressure is 155/84. She is saturating 95% on room air. I have seen and evaluated the patient on the day of discharge. HOSPITAL COURSE: The patient is a 46-year-old female, who presented to the emergency room with comp laints of right jaw pain. She was evaluated and diagnosed with: 1. Right odontogenic submandibular infection. During this hospitalization, she received a consulta tion from chronometer tester, as well as Infectious Disease. She was placed on IV antib iotic therapy. Incision and drainage of the right submandibular space abscess, as well as extractio n of the tooth was performed. The patient's condition has significantly improved. She does continu e to have a [place] drain in place. She will be transitioned to oral antibiotics and will be discha rged home to follow up in the outpatient setting. 2. Leukocytosis, secondary to the patient's acute infectious response. 3. Elevated BP. The patient will follow up in the outpatient setting with her primary care physici an when her infection has resolved. DISPOSITION: Patient will be discharged home independently. I reviewed her care with Case Manageme nt, as well as Infectious Disease. She will be transitioned to oral moxifloxacin and follow up in t outpatient setting with Infectious Disease as well as [facility]. There are no pending studies. DISCHARGE MEDICATIONS: I have provided the patient a prescription for moxifloxacin 400 mg daily, #1 4. I spent greater than 35 minutes in the care, coordination, and management of this patient's disposit ion. /[id number]/MODL
[2016-10-13] MEDS ORDERED: MOXIFLOXACIN 400 MG TAB PO SCH (09:00)
== END 2016-10-12 14:54 | disposition home or self-care (01) | DRG 138 ==
LOC: F3E 23:32 → OBSVTOIN 10-09 16:47
PROVIDERS: ADMIT Internal Medicine; ATTEND Internal Medicine
PROC: 0CTX0Z0 Resection of Lower Tooth, Single, Open Approach (ICD-10-PCS; principal; 2016-10-09 10:06)
PROC: 0W9500Z Drainage of Lower Jaw with Drainage Device, Open Approach (ICD-10-PCS; principal; 2016-10-09 10:06)
DX: K12.2 Cellulitis and abscess of mouth (principal); R03.0 Elevated blood-pressure reading, without diagnosis of hypertension; D72.829 Elevated white blood cell count, unspecified
CPT/HCPCS: 82947-QW; 96374; G0378; J0295; J1100; J1170; J1335; J1885; J2250; J2405; J2704; J3010; J3475; Q9967